=== PATIENT | female | born 1935 | race Caucasian/White ===

== ENCOUNTER 2024-10-15 22:05 | Emergency (ER) | payer MEDICARE, OTHER ==
[~2024-10-15] VITALS: Ht 160 cm; Wt 64.9 kg
[2024-10-15] MEDS ORDERED: ASPIRIN 325 MG TABLET ONE (22:38)
[2024-10-15] MEDS: ASPIRIN 325 MG TABLET PO ONE (22:48)
[2024-10-15 22:54] LABS: BASOPHILS # (AUTO) 0.1 K/uL (0.0-0.2); BASOPHILS % (AUTO) 0.8 % (0.0-2.0); EOSINOPHILS # (AUTO) 0.3 K/uL (0.0-0.7); EOSINOPHILS % (AUTO) 2.9 % (0.0-6.0); HEMATOCRIT 38 % (33-45); LYMPHOCYTES # (AUTO) 1.5 K/uL (0.8-4.8); LYMPHOCYTES % (AUTO) 16.2 % (20.0-44.0); MEAN CORPUSCULAR HEMOGLOBIN 19 PG (26.0-33.0); MEAN CORPUSCULAR HGB CONC 32 g/dl (31.0-36.0); MEAN CORPUSCULAR VOLUME 61 fL (82-100); MONOCYTES # (AUTO) 0.9 K/uL (0.1-1.30); MONOCYTES % (AUTO) 9.5 % (2.0-12.0); NEUTROPHILS # (AUTO) 6.7 K/uL (1.8-8.9); NEUTROPHILS % (AUTO) 70.6 % (43.0-81.0); PLATELET COUNT (AUTO) 419 K/uL (150-450); RED CELL DISTRIBUTION WIDTH 16.1 % (11.5-15.0); WHITE BLOOD COUNT (AUTO) 9.4 K/uL (4.3-11.0)
[2024-10-15 23:10] LABS: ALANINE AMINOTRANSFERASE 51 U/L (12-78); ALBUMIN 3.7 g/dL (3.4-5.0); ALKALINE PHOSPHATASE 176 U/L (46-116); ASPARTATE AMINOTRANSFERASE 43 U/L (15-37); BILIRUBIN,DIRECT 0.2 mg/dL (0.0-0.2); BILIRUBIN,TOTAL 0.4 mg/dL (0.2-1.0); CALCIUM, SERUM 8.8 mg/dL (8.5-10.1); CARBON DIOXIDE 30 mmol/L (21-32); CHLORIDE 101 mmol/L (98-107); CREATININE 0.8 mg/dL (0.6-1.3); GLUCOSE 88 mg/dL (74-106); POTASSIUM 3.7 mmol/L (3.5-5.1); SODIUM SERUM 135 mmol/L (136-145); TOTAL PROTEIN, SERUM 7.3 g/dL (6.4-8.2); UREA NITROGEN, BLOOD 22 mg/dL (7-18)
[2024-10-15] MEDS ORDERED: diphenhydrAMINE HCL 25 MG CAPSULE ONE (23:15)
[2024-10-15] MEDS: DIPHENHYDRAMINE HCL 12.5 MG/5 ML UDC PO ONE (23:19)
[2024-10-15 23:31] LABS: INR 1.09 (0.91-1.10); PARTIAL THROMBOPLASTIN TIME 25.4 SEC (24.3-34.3); PROTHROMBIN TIME 11.5 SECS (9.2-11.1)
[2024-10-16 03:27] VITALS: BP 113/76; TEMP 98.3; O2SAT 96
== END 2024-10-16 04:47 ==
LOC: ER 22:14
DX: R07.89 Other chest pain (principal); R94.31 Abnormal electrocardiogram [ECG] [EKG]; E03.9 Hypothyroidism, unspecified; E78.5 Hyperlipidemia, unspecified; F02.80 Dementia in other diseases classified elsewhere, unspecified severity, without behavioral disturbance, psychotic disturbance, mood disturbance, and anxiety; G30.9 Alzheimer's disease, unspecified; I10 Essential (primary) hypertension; J45.909 Unspecified asthma, uncomplicated; F41.9 Anxiety disorder, unspecified; F32.A Depression, unspecified; K21.9 Gastro-esophageal reflux disease without esophagitis; Z88.0 Allergy status to penicillin; Z88.3 Allergy status to other anti-infective agents; Z88.8 Allergy status to other drugs, medicaments and biological substances; Z91.041 Radiographic dye allergy status
CPT/HCPCS: 99285; 71045; 93005; 85025; 80048; 80076; 36415 ×2; 84484 ×2; 85730; Q0163 ×2

== ENCOUNTER 2025-04-12 07:07 | Inpatient (IN) | payer MEDICARE, OTHER ==
[~2025-04-12] VITALS: Ht 157.5 cm; Wt 64.0 kg
[2025-04-12] MEDS ORDERED: HYDROMORPHONE 1 MG/1 ML DISP.SYRIN ONE (07:31)
[2025-04-12 07:38] LABS: PLATELET COUNT (AUTO) 451 K/uL (150-450); RED BLOOD CELL COUNT(AUTO) 6.20 MIL/uL (4.0-5.2); RED CELL DISTRIBUTION WIDTH 16.9 % (11.5-15.0); WHITE BLOOD COUNT (AUTO) 9.0 K/uL (4.3-11.0)
[2025-04-12] MEDS: IV NS 0.9% 500 ML BAG IV ONE (07:38)
[2025-04-12 07:47] LABS: CALCIUM, SERUM 9.1 mg/dL (8.5-10.1); CREATININE 0.7 mg/dL (0.6-1.3); SODIUM SERUM 138.0 mmol/L (136-145); UREA NITROGEN, BLOOD 25.0 mg/dL (7-18)
[2025-04-12 07:52] LABS: INR 1.09 (0.91-1.10)
[2025-04-12] MEDS: HYDROMORPHONE INJ 2 MG/ML DISP.SYRIN IV ONE (08:01)
[2025-04-12] MEDS ORDERED: GUAI100S9 PO (09:08)
[2025-04-12] MEDS ORDERED: SPIR25TA6 PO (09:08)
[2025-04-12] MEDS ORDERED: LOPE2CAP40 PO (09:08)
[2025-04-12] MEDS ORDERED: ASCO500T10 PO (09:08)
[2025-04-12] MEDS ORDERED: UREA15PO PO (09:08)
[2025-04-12] MEDS ORDERED: CARV6.252 PO (09:08)
[2025-04-12] MEDS ORDERED: QUET25TA PO (09:08)
[2025-04-12] MEDS ORDERED: ATOR40TA PO (09:08)
[2025-04-12] MEDS ORDERED: SERT25TA5 PO (09:08)
[2025-04-12] MEDS ORDERED: LEVO100T9 PO (09:08)
[2025-04-12] MEDS ORDERED: LOSA25TA27 PO (09:08)
[2025-04-12] MEDS ORDERED: ACET325T53 PO (09:08)
[2025-04-12] MEDS ORDERED: FURO20TA4 PO (09:08)
[2025-04-12] MEDS ORDERED: DORZ10DR13 LEFTEYE (09:08)
[2025-04-12] MEDS ORDERED: EMPA10TA PO (09:08)
[2025-04-12] MEDS ORDERED: ALBU18HF2 IH (09:08)
[2025-04-12] MEDS ORDERED: POLY17PO4 PO (09:08)
[2025-04-12] MEDS ORDERED: GABA-532 PO (09:08)
[2025-04-12] MEDS ORDERED: BISA10SU11 RC (09:08)
[2025-04-12] MEDS ORDERED: MELA3TAB41 PO (09:08)
[2025-04-12] MEDS ORDERED: MEMA5TAB PO (09:08)
[2025-04-12] MEDS ORDERED: CRAN300T PO (09:08)
[2025-04-12] MEDS ORDERED: CHOL100043 PO (09:08)
[2025-04-12] MEDS ORDERED: DONE5TAB34 PO (09:08)
[2025-04-12] MEDS ORDERED: IPRA21SP BNOSTRILS (09:08)
[2025-04-12] MEDS ORDERED: CLON0.5T4 PO (09:08)
[2025-04-12] MEDS ORDERED: DOXE3TAB4 PO (09:08)
[2025-04-12] MEDS ORDERED: CYAN100096 PO (09:08)
[2025-04-12] MEDS ORDERED: LORA10TA68 PO (09:08)
[2025-04-12] MEDS ORDERED: ACET-73 PO (09:08)
[2025-04-12] MEDS ORDERED: BUSP5TAB3 PO (09:08)
[2025-04-12] MEDS ORDERED: HYDR-500 PO (09:08)
[2025-04-12] MEDS ORDERED: Z GUARD REMEDY 4 OZ OINT TP PRN (10:30)
[2025-04-12 12:00] VITALS: BP 143/62; TEMP 97.3; O2SAT 97
[2025-04-12] MEDS: ACETAMINOPHEN 325 MG TABLET PO PRN (13:21)
[2025-04-12 16:00] VITALS: BP 131/52; TEMP 97.7; O2SAT 96
[2025-04-12 18:03] LABS: APPEARANCE,URINE CLEAR (CLEAR); BLOOD, URINE NEGATIVE Ery/uL (NEGATIVE); LEUKOCYTE ESTERASE ,URINE NEGATIVE (NEGATIVE); NITRITE, URINE NEGATIVE (NEGATIVE); UGLUCOSE 3+ mg/dL (NEGATIVE)
[2025-04-12 18:34] LABS: ADD URINE CULTURE NO; SQUAMOUS EPITHELIAL CELL,UR 0-2 /HPF (None Seen)
[2025-04-12] MEDS: MORPHINE SULFATE INJ 4 MG/ML DISP.SYRIN IV PRN (18:35)
[2025-04-12 20:00] VITALS: BP 120/55; TEMP 98.1; O2SAT 94
[2025-04-12] MEDS: LORAZEPAM 0.5 MG TABLET PO PRN (21:15)
[2025-04-12] MEDS: LORAZEPAM INJ 2 MG/ML VIAL IM ONE (21:30)
[2025-04-12] MEDS: OLANZAPINE 10 MG VIAL IM ONE (22:02)
[2025-04-13] MEDS: PANTOPRAZOLE 40 MG TABLET.DR PO SCH (07:30)
[2025-04-13] MEDS ORDERED: ANESTHESIA TRAY IN PYXIS 1 EA TRAY MC ONE (07:52)
[2025-04-13] MEDS ORDERED: BUPIVACAINE 0.25% 75 MG/30 ML VIAL ONE (07:53)
[2025-04-13] MEDS ORDERED: VANCOMYCIN 1 GM VIAL ONE (07:53)
[2025-04-13 08:00] VITALS: BP 103/85; TEMP 99.7; O2SAT 96
[2025-04-13] MEDS ORDERED: TRANEXAMIC ACID 1,000 MG/10 ML VIAL ONE (08:56)
[2025-04-13] MEDS ORDERED: ROCURONIUM BROMIDE 50 MG/5 ML ONE (09:03)
[2025-04-13] MEDS ORDERED: FENTANYL PF 250MCG/5ML AMPUL ONE (09:03)
[2025-04-13 13:11] LABS: PLATELET COUNT (AUTO) 457 K/uL (150-450); RED BLOOD CELL COUNT(AUTO) 5.57 MIL/uL (4.0-5.2); RED CELL DISTRIBUTION WIDTH 17.6 % (11.5-15.0); WHITE BLOOD COUNT (AUTO) 29.2 K/uL (4.3-11.0)
[2025-04-13 13:57] LABS: CALCIUM, SERUM 8.1 mg/dL (8.5-10.1); CREATININE 0.9 mg/dL (0.6-1.3); PHOSPHORUS 5.3 mg/dL (2.5-4.9); SODIUM SERUM 141.0 mmol/L (136-145); UREA NITROGEN, BLOOD 18.0 mg/dL (7-18)
[2025-04-13] MEDS ORDERED: ALBUTEROL FS 2.5 MG/3 ML VIAL.NEB ONE (14:04)
[2025-04-13] MEDS: ALBUTEROL FS 2.5 MG/3 ML VIAL.NEB NEB STA (14:07)
[2025-04-13 14:08] VITALS: O2SAT 96
[2025-04-13 14:30] VITALS: BP 105/52; O2SAT 90
[2025-04-13 15:16] LABS: LYMPHOCYTES % (MANUAL) 5 % (16-48); MONOCYTES % (MANUAL) 3 % (0-11.0); NEUTROPHILS % (MANUAL) 92 (42-76)
[2025-04-13 15:17] LABS: PLATELET ESTIMATE INCREASED
[2025-04-13] MEDS: ONDANSETRON HCL/PF 4 MG/2 ML VIAL IVP PRN (16:36)
[2025-04-13 20:00] VITALS: BP 102/39; TEMP 98.1
[2025-04-13] MEDS: CEFAZOLIN 2 GM in IV D5W 100 ML IV SCH (21:07)
[2025-04-14 04:07] LABS: IMMUNOGLOBULIN A, SERUM 280 mg/dL (64-422); IMMUNOGLOBULIN M, SERUM <5 mg/dL (26-217)
[2025-04-14 07:07] LABS: CARCINOEMBRYONIC ANTIGEN (CEA) 2.0 ng/mL (0.0-4.7)
[2025-04-14] MEDS: ENOXAPARIN SODIUM 40 MG/0.4 ML DISP.SYRIN SQ SCH (08:47)
[2025-04-14 11:00] VITALS: BP 104/56; TEMP 98.6; O2SAT 94
[2025-04-14 11:25] LABS: CALCIUM, SERUM 8.3 mg/dL (8.5-10.1); CREATININE 0.8 mg/dL (0.6-1.3); SODIUM SERUM 139.0 mmol/L (136-145); UREA NITROGEN, BLOOD 22.0 mg/dL (7-18)
[2025-04-14 11:40] LABS: PLATELET COUNT (AUTO) 334 K/uL (150-450); RED BLOOD CELL COUNT(AUTO) 4.72 MIL/uL (4.0-5.2); RED CELL DISTRIBUTION WIDTH 17.3 % (11.5-15.0); WHITE BLOOD COUNT (AUTO) 15.7 K/uL (4.3-11.0)
[2025-04-14] MEDS: TRAMADOL HCL 50 MG TABLET PO SCH (12:08)
[2025-04-15 04:09] LABS: FREE KAPPA LT CHAINS SERUM 14.1 mg/L (3.3-19.4); FREE LAMBDA LT CHAIN SERUM 13.6 mg/L (5.7-26.3); KAPPA/LAMBDA RATIO SERUM 1.04 (0.26-1.65)
[2025-04-15 07:10] LABS: *SPE A/G RATIO 1.4 (0.7-1.7); *SPE ALBUMIN 3.0 g/dL (2.9-4.4); *SPE ALPHA-1-GLOBULIN 0.3 g/dL (0.0-0.4); *SPE ALPHA-2-GLOBULIN 0.6 g/dL (0.4-1.0); *SPE BETA GLOBULIN 0.9 g/dL (0.7-1.3); *SPE GLOBULIN, TOTAL 2.1 g/dL (2.2-3.9); *SPE M-SPIKE Not Observed g/dL (Not Observed); *SPE PROTEIN TOTAL 5.1 g/dL (6.0-8.5); *SPEGAMMA GLOBULIN 0.4 g/dL (0.4-1.8)
[2025-04-15 07:55] LABS: PLATELET COUNT (AUTO) 281 K/uL (150-450); RED BLOOD CELL COUNT(AUTO) 4.38 MIL/uL (4.0-5.2); RED CELL DISTRIBUTION WIDTH 16.9 % (11.5-15.0); WHITE BLOOD COUNT (AUTO) 12.3 K/uL (4.3-11.0)
[2025-04-15 08:00] VITALS: BP 114/55; TEMP 98.1
[2025-04-15 08:00] LABS: FIBRINOGEN ACTIVITY 438.0 Mg/dL (213-485); INR 1.07 (0.91-1.10)
[2025-04-15 09:48] LABS: CALCIUM, SERUM 8.4 mg/dL (8.5-10.1); CREATININE 0.7 mg/dL (0.6-1.3); SODIUM SERUM 136.0 mmol/L (136-145); UREA NITROGEN, BLOOD 18.0 mg/dL (7-18)
[2025-04-15 10:49] LABS: PLATELET ESTIMATE ADEQUATE
[2025-04-15 16:00] VITALS: BP 113/56; TEMP 98.1
[2025-04-16 07:23] LABS: PLATELET COUNT (AUTO) 299 K/uL (150-450); RED BLOOD CELL COUNT(AUTO) 4.71 MIL/uL (4.0-5.2); RED CELL DISTRIBUTION WIDTH 16.9 % (11.5-15.0); WHITE BLOOD COUNT (AUTO) 10.7 K/uL (4.3-11.0)
[2025-04-16 07:42] LABS: CALCIUM, SERUM 8.2 mg/dL (8.5-10.1); CREATININE 0.6 mg/dL (0.6-1.3); SODIUM SERUM 137.0 mmol/L (136-145); UREA NITROGEN, BLOOD 19.0 mg/dL (7-18)
[2025-04-16] MEDS: GABAPENTIN 100 MG CAPSULE PO SCH (13:11)
[2025-04-16] MEDS: ASCORBIC ACID 500 MG TABLET PO SCH (16:41)
[2025-04-16] MEDS: CARVEDILOL 6.25 MG TABLET PO SCH (16:46)
[2025-04-16] MEDS: MEMANTINE HCL 5 MG TABLET PO SCH (16:47)
[2025-04-16] MEDS: TIMOLOL 0.5% SOLN OPHTH 5 ML BOTTLE LEFTEYE SCH (16:55)
[2025-04-16] MEDS: DORZOLAMIDE OPTH 2% 10 ML BOTTLE EACHEYE SCH (16:55)
[2025-04-16 20:00] VITALS: BP 113/59; TEMP 99.5; O2SAT 91; O2SAT 94
[2025-04-16] MEDS: QUETIAPINE FUMARATE 25 MG TABLET PO SCH (21:15)
[2025-04-16] MEDS: ATORVASTATIN 40 MG TABLET PO SCH (21:46)
[2025-04-16] MEDS: DONEPEZIL 5 MG TABLET PO SCH (21:46)
[2025-04-17 06:28] VITALS: BP 100/48; TEMP 99.4; O2SAT 95
[2025-04-17 07:31] LABS: PLATELET COUNT (AUTO) 323 K/uL (150-450); RED BLOOD CELL COUNT(AUTO) 4.50 MIL/uL (4.0-5.2); RED CELL DISTRIBUTION WIDTH 16.5 % (11.5-15.0); WHITE BLOOD COUNT (AUTO) 10.8 K/uL (4.3-11.0)
[2025-04-17 07:32] LABS: CALCIUM, SERUM 8.2 mg/dL (8.5-10.1); CREATININE 0.6 mg/dL (0.6-1.3); SODIUM SERUM 135.0 mmol/L (136-145); UREA NITROGEN, BLOOD 17.0 mg/dL (7-18)
[2025-04-17] MEDS: LEVOTHYROXINE SODIUM 100 MCG TABLET PO SCH (07:54)
[2025-04-17 08:00] VITALS: BP 124/61; TEMP 97.5; O2SAT 98
[2025-04-17] MEDS: UREA 15 GM PO SCH (08:45)
[2025-04-17] MEDS: EMPAGLIFLOZIN 10 MG TABLET PO SCH (08:45)
[2025-04-17] MEDS: CHOLECALCIFEROL 1,000 UNIT TABLET (VIT D3) PO SCH (08:46)
[2025-04-17] MEDS: CYANOCOBALAMIN 500 MCG TABLET PO SCH (08:48)
[2025-04-17] MEDS: LOSARTAN POTASSIUM 25 MG TABLET PO SCH (08:49)
[2025-04-17] MEDS: SERTRALINE HCL 25 MG TABLET PO SCH (08:49)
[2025-04-17] MEDS ORDERED: DOXEPIN HCL 3 MG PO SCH (09:00)
[2025-04-17] MEDS: POLYETHYLENE GLYCOL 3350 17 GM POWD.PACK PO PRN (10:29)
[2025-04-17] MEDS: BISACODYL SUPP (10 MG) 10 MG/SUPP.RECT SUPP.RECT RC PRN (11:37)
[2025-04-17 16:00] VITALS: BP 111/58; TEMP 99.7; O2SAT 94
[2025-04-17 20:00] VITALS: BP 111/59; TEMP 97.9; O2SAT 96
[2025-04-18 10:20] LABS: PLATELET COUNT (AUTO) 358 K/uL (150-450); RED BLOOD CELL COUNT(AUTO) 4.80 MIL/uL (4.0-5.2); RED CELL DISTRIBUTION WIDTH 17.1 % (11.5-15.0); WHITE BLOOD COUNT (AUTO) 18.1 K/uL (4.3-11.0)
[2025-04-18 10:51] LABS: CALCIUM, SERUM 8.6 mg/dL (8.5-10.1); CREATININE 0.9 mg/dL (0.6-1.3); SODIUM SERUM 138.0 mmol/L (136-145); UREA NITROGEN, BLOOD 22.0 mg/dL (7-18)
[2025-04-18 11:12] LABS: INR 1.12 (0.91-1.10)
[2025-04-18 16:00] VITALS: BP 102/56; TEMP 98.4; O2SAT 96
[2025-04-18 19:53] LABS: PLATELET COUNT (AUTO) 371 K/uL (150-450); RED BLOOD CELL COUNT(AUTO) 4.53 MIL/uL (4.0-5.2); RED CELL DISTRIBUTION WIDTH 17.3 % (11.5-15.0); WHITE BLOOD COUNT (AUTO) 20.1 K/uL (4.3-11.0)
[2025-04-18 20:56] LABS: EOSINOPHILS % (MANUAL) 3 % (0-4); LYMPHOCYTES % (MANUAL) 10 % (16-48); MONOCYTES % (MANUAL) 4 % (0-11.0); NEUTROPHILS % (MANUAL) 83 (42-76); PLATELET ESTIMATE ADEQUATE
[2025-04-19 08:00] VITALS: BP 108/57; TEMP 97.9; O2SAT 96
[2025-04-19 08:01] LABS: PLATELET COUNT (AUTO) 355 K/uL (150-450); RED BLOOD CELL COUNT(AUTO) 4.53 MIL/uL (4.0-5.2); RED CELL DISTRIBUTION WIDTH 16.8 % (11.5-15.0); WHITE BLOOD COUNT (AUTO) 16.2 K/uL (4.3-11.0)
[2025-04-19 08:43] LABS: INR 1.12 (0.91-1.10)
[2025-04-19 20:00] VITALS: BP 94/58; TEMP 97.9; O2SAT 93
[2025-04-20 07:15] LABS: PLATELET COUNT (AUTO) 422 K/uL (150-450); RED BLOOD CELL COUNT(AUTO) 4.56 MIL/uL (4.0-5.2); RED CELL DISTRIBUTION WIDTH 17.2 % (11.5-15.0); WHITE BLOOD COUNT (AUTO) 12.9 K/uL (4.3-11.0)
[2025-04-20 07:30] VITALS: BP 115/66; TEMP 97.6; O2SAT 96
[2025-04-20 09:43] LABS: PLATELET ESTIMATE ADEQUATE
[2025-04-20 16:00] VITALS: BP 119/69; TEMP 98.1; O2SAT 94
[2025-04-20 20:00] VITALS: BP 100/50; TEMP 97.7; O2SAT 94
[2025-04-21 06:49] LABS: PLATELET COUNT (AUTO) 440 K/uL (150-450); RED BLOOD CELL COUNT(AUTO) 4.58 MIL/uL (4.0-5.2); RED CELL DISTRIBUTION WIDTH 16.9 % (11.5-15.0); WHITE BLOOD COUNT (AUTO) 11.6 K/uL (4.3-11.0)
[2025-04-21 07:01] LABS: FIBRINOGEN ACTIVITY 521.0 Mg/dL (213-485); INR 1.08 (0.91-1.10)
[2025-04-21 07:30] VITALS: BP 163/89; TEMP 97.5; O2SAT 98
[2025-04-21 09:59] LABS: EOSINOPHILS % (MANUAL) 3 % (0-4); LYMPHOCYTES % (MANUAL) 20 % (16-48); MONOCYTES % (MANUAL) 9 % (0-11.0); NEUTROPHILS % (MANUAL) 68 (42-76); PLATELET ESTIMATE ADEQUATE
[2025-04-21] MEDS ORDERED: IV NS 0.9% 500 ML IV ONE (10:22)
[2025-04-21] MEDS ORDERED: IV NS 0.9% 250 ML IV ONE (10:25)
[2025-04-21 18:42] LABS: IRON, SERUM 54.0 ug/dl (50-175)
[2025-04-21 20:00] VITALS: BP 110/61; TEMP 99.4; O2SAT 98
[2025-04-21 21:00] VITALS: BP 132/73; O2SAT 95
[2025-04-21 22:00] VITALS: BP 114/53; O2SAT 100
[2025-04-21 23:00] VITALS: BP 107/54; O2SAT 100
[2025-04-22] VITALS (27 sets, daily range): BP systolic 85–126; BP diastolic 44–89; TEMP 97.7–98.2; O2SAT 93–100
[2025-04-22 06:21] LABS: CALCIUM, SERUM 8.4 mg/dL (8.5-10.1); CREATININE 0.5 mg/dL (0.6-1.3); SODIUM SERUM 134.0 mmol/L (136-145); UREA NITROGEN, BLOOD 9.0 mg/dL (7-18)
[2025-04-23] VITALS (19 sets, daily range): BP systolic 95–128; BP diastolic 37–72; TEMP 97.9–98.8; O2SAT 94–98
[2025-04-23 04:54] LABS: PLATELET COUNT (AUTO) 495 K/uL (150-450); RED BLOOD CELL COUNT(AUTO) 4.64 MIL/uL (4.0-5.2); RED CELL DISTRIBUTION WIDTH 16.9 % (11.5-15.0); WHITE BLOOD COUNT (AUTO) 12.1 K/uL (4.3-11.0)
[2025-04-24] VITALS: BP 103/50; TEMP 98.8; O2SAT 100
[2025-04-24 04:00] VITALS: BP 104/50; TEMP 98.1; O2SAT 97
[2025-04-24 08:00] VITALS: BP 108/63; TEMP 97.9
[2025-04-24 12:00] VITALS: BP 92/51; TEMP 97.7; O2SAT 92
[2025-04-24 16:00] VITALS: BP 93/51; TEMP 97.7; O2SAT 99
[2025-04-24 20:00] VITALS: BP 96/54; TEMP 97.7; O2SAT 97
[2025-04-25] VITALS: BP 96/54; TEMP 97.7; O2SAT 97
[2025-04-25 04:00] VITALS: BP 119/70; TEMP 98.1; O2SAT 97
[2025-04-25 08:00] VITALS: BP 110/56; TEMP 97.9; O2SAT 99
[2025-04-25 12:00] VITALS: BP 113/52; TEMP 97.7; O2SAT 97
[2025-04-25 16:00] VITALS: BP 101/77; TEMP 97.5; O2SAT 98
[2025-04-25 20:23] VITALS: BP 95/48; TEMP 97.7; O2SAT 95
[2025-04-26] VITALS: BP 107/53; TEMP 98; O2SAT 97
[2025-04-26 04:00] VITALS: BP 110/61; TEMP 97.7; O2SAT 97
[2025-04-26 06:34] LABS: PLATELET COUNT (AUTO) 573 K/uL (150-450); RED BLOOD CELL COUNT(AUTO) 4.79 MIL/uL (4.0-5.2); RED CELL DISTRIBUTION WIDTH 17.4 % (11.5-15.0); WHITE BLOOD COUNT (AUTO) 10.4 K/uL (4.3-11.0)
[2025-04-26 08:00] VITALS: BP 120/76; TEMP 97.5; O2SAT 96
[2025-04-26 12:00] VITALS: BP 97/58; TEMP 97.7; O2SAT 97
[2025-04-26 14:54] LABS: EOSINOPHILS % (MANUAL) 4 % (0-4); LYMPHOCYTES % (MANUAL) 10 % (16-48); MONOCYTES % (MANUAL) 10 % (0-11.0); NEUTROPHILS % (MANUAL) 76 (42-76); PLATELET ESTIMATE ADEQUATE
[2025-04-26 16:00] VITALS: BP 98/52; TEMP 98.1; O2SAT 98
[2025-04-26 20:00] VITALS: BP 98/51; TEMP 98.1; O2SAT 97
[2025-04-27] VITALS: BP 98/57; TEMP 98.1; O2SAT 98
[2025-04-27 04:00] VITALS: BP 106/60; TEMP 98.2; O2SAT 98
[2025-04-27 08:00] VITALS: BP 105/49; TEMP 97.5; O2SAT 92
[2025-04-27 12:00] VITALS: BP 103/54; TEMP 98.8; O2SAT 92
[2025-04-27 16:00] VITALS: BP 112/63; TEMP 97.7; O2SAT 92
[2025-04-27 20:00] VITALS: BP 94/57; TEMP 98.2; O2SAT 90
[2025-04-28] VITALS (7 sets, daily range): BP systolic 91–115; BP diastolic 47–81; TEMP 97.2–98.4; O2SAT 91–93
[2025-04-29] VITALS: BP 101/50; TEMP 97.5; O2SAT 96; O2SAT 97
[2025-04-29 04:00] VITALS: BP 110/58; TEMP 98.1; O2SAT 92; O2SAT 93
[2025-04-29 06:56] LABS: PLATELET COUNT (AUTO) 658 K/uL (150-450); RED BLOOD CELL COUNT(AUTO) 4.97 MIL/uL (4.0-5.2); RED CELL DISTRIBUTION WIDTH 17.8 % (11.5-15.0); WHITE BLOOD COUNT (AUTO) 8.7 K/uL (4.3-11.0)
[2025-04-29 08:05] VITALS: BP 113/53; TEMP 97.9; O2SAT 95
[2025-04-29 12:04] VITALS: BP 105/52; TEMP 98.6; O2SAT 94
== END 2025-04-29 13:40 | DRG 480 ==
LOC: ER 07:12 → MED 10:03 → ICU 04-21 19:06 → TELE1 04-23 15:37
PROVIDERS: ADMIT Nurse Practitioner Family; ATTEND Nurse Practitioner Acute Care
PROC: 0QS606Z Reposition Right Upper Femur with Intramedullary Internal Fixation Device, Open Approach (ICD-10-PCS; principal; 2025-04-13 09:00)
PROC: 0W9B30Z Drainage of Left Pleural Cavity with Drainage Device, Percutaneous Approach (ICD-10-PCS; 2025-04-21)
PROC: 0BJLXZZ Inspection of Left Lung, External Approach (ICD-10-PCS; 2025-04-21)
DX: M84.551A Pathological fracture in neoplastic disease, right femur, initial encounter for fracture (principal); J96.01 Acute respiratory failure with hypoxia; C34.92 Malignant neoplasm of unspecified part of left bronchus or lung; E87.1 Hypo-osmolality and hyponatremia; I50.42 Chronic combined systolic (congestive) and diastolic (congestive) heart failure; I42.9 Cardiomyopathy, unspecified; C34.12 Malignant neoplasm of upper lobe, left bronchus or lung; J93.9 Pneumothorax, unspecified; F05 Delirium due to known physiological condition; W06.XXXA Fall from bed, initial encounter; I25.10 Atherosclerotic heart disease of native coronary artery without angina pectoris; I11.0 Hypertensive heart disease with heart failure; J45.909 Unspecified asthma, uncomplicated; Z53.8 Procedure and treatment not carried out for other reasons; Z79.899 Other long term (current) drug therapy; F03.90 Unspecified dementia, unspecified severity, without behavioral disturbance, psychotic disturbance, mood disturbance, and anxiety; E78.5 Hyperlipidemia, unspecified; Z88.0 Allergy status to penicillin; Z99.3 Dependence on wheelchair; E03.9 Hypothyroidism, unspecified; D72.829 Elevated white blood cell count, unspecified; R73.9 Hyperglycemia, unspecified; F32.A Depression, unspecified; H40.9 Unspecified glaucoma; J43.9 Emphysema, unspecified; Z66 Do not resuscitate; Z86.73 Personal history of transient ischemic attack (TIA), and cerebral infarction without residual deficits; F41.9 Anxiety disorder, unspecified; H91.13 Presbycusis, bilateral; F09 Unspecified mental disorder due to known physiological condition; D18.09 Hemangioma of other sites; Y92.129 Unspecified place in nursing home as the place of occurrence of the external cause; Z79.84 Long term (current) use of oral hypoglycemic drugs
CPT/HCPCS: 36415; 70450-TC; 71045-TC; 71250-TC; 72125-TC; 72192-TC; 73502; 73552; 77012-TC; 80048-TC; 81001; 82378; 82607-TC; 82728-TC; 82784; 82962-TC; 83540-TC; 83735-TC; 84100-TC; 84155; 84165; 84439-TC; 84443-TC; 85025-TC; 85396; 85610-TC; 85730-TC; 86300; 86316; 86334; 86850-TC; 87040-TC; 87081-TC; 88305-TC; 88311-TC; 93307-TC; 97110-TC; 97112-TC; 97116-TC; 97530-TC; A4223; A6209; A6253; C1713; G0378; J0330; J0690; J1100; J1171; J1200; J1650; J2270; J2405; J2704; J3010; J3370; J3490; J7030; J7040; J7050; J7060